=== PATIENT | male | born 1975 | race Caucasian/White ===

== ENCOUNTER 2016-09-09 22:31 | Emergency (ER) | payer MEDICAID ==
[~2016-09-09] VITALS: Ht 167.6 cm; Wt 74.8 kg
[2016-09-09] MEDS ORDERED: BUPR8TAB4 SL (22:59)
--- NOTE | 2016-09-10 01:05 | NUR ---
Patient discharged to home in stable conditon. Written and verbal after care instructions given. Patient verbalizes understanding of instructions.
== END 2016-09-10 01:06 | disposition home or self-care (01) ==
LOC: ER 22:31
DX: F11.23 Opioid dependence with withdrawal (principal); F17.200 Nicotine dependence, unspecified, uncomplicated
CPT/HCPCS: 99283; A4663

== ENCOUNTER 2018-05-26 09:05 | Emergency (ER) | payer MEDICAID ==
[~2018-05-26] VITALS: Ht 167.6 cm; Wt 85.7 kg
[~2018-05-26 09:05] MED LIST: BUPR8TAB4 SL
[2018-05-26] MEDS ORDERED: MAG HYDROX/AL HYDROX/SIMETH 30 ML LIQUID UDC PO ONE (09:30)
[2018-05-26] MEDS ORDERED: IV NORMAL SALINE 1000 ML BAG IV ONE (09:30)
[2018-05-26] MEDS ORDERED: ONDANSETRON 4 MG/2 ML VIAL IV ONE (09:30)
[2018-05-26] MEDS ORDERED: LIDOCAINE VISCUS 2% 15 ML UDC MM ONE (09:30)
[2018-05-26] MEDS ORDERED: FAMOTIDINE. 20 MG/2 ML VIAL IV ONE ×2 (09:30→09:32)
[2018-05-26] MEDS ORDERED: ONDANSETRON 4 MG/2 ML VIAL ONE (09:32)
[2018-05-26] MEDS ORDERED: MAG HYDROX/AL HYDROX/SIMETH 30 ML LIQUID UDC ONE (09:33)
[2018-05-26] MEDS ORDERED: LIDOCAINE VISCUS 2% 15 ML UDC ONE (09:33)
--- NOTE | 2018-05-26 09:45 | NUR ---
PT IS IN ROOM #1B. DR LUEVANO EVALUATED THE PT.
--- NOTE | 2018-05-26 10:01 | NUR ---
PATIENT STATE HE DOES NOT WANT ANOTHER NEEDLE FOR BLOOD DRAW AND WILL ONLY ALLOW A DRAW FROM THE IV SITE. I ATTEMPTED TO DRAW BLOOD FROM HE IV BUT THE FLOW WAS INADEQUATE FOR BLOOD TESTS. PATIENT STILL REFUSED A NEEDLE FOR BLOOD DRAW AND STATED HE WILL SEE HIS PMD TOMMORROW FOR BLOOD TEST AND ABSOLUTELY DOES NOT WANT IT NOW. DR BASSEM LITTLEJOHNFIED.
--- NOTE | 2018-05-26 10:14 | NUR ---
IV removed. Catheter intact and site benign. Pressure and 4x4 gauze applied to site. No bleeding noted.
--- NOTE | 2018-05-26 10:14 | NUR ---
Patient does not wish to proceed with medical care recommended by . Patient given information related to possible complications, up to and including , which could occur as a result of leaving the hospital at this time. Patient verbalizes understanding of risks involved due to leaving against medical advice. Patient has signed AMA form.
== END 2018-05-26 10:16 | disposition left against medical advice (07) ==
LOC: ER 09:05
DX: R10.13 Epigastric pain (principal); F17.200 Nicotine dependence, unspecified, uncomplicated; Z79.899 Other long term (current) drug therapy
CPT/HCPCS: 74022; 76705; 93005; 96374; 96375; 99284; J2405; J3490; A4663; J7030

== ENCOUNTER 2018-09-04 16:39 | Emergency (ER) | payer MEDICAID ==
[~2018-09-04] VITALS: Ht 167.6 cm; Wt 89.8 kg
--- NOTE | 2018-09-04 17:19 | NUR ---
Patient discharged to home in stable conditon. Written and verbal after care instructions given to patient. Patient verbalizes understanding and compliance of instructions. Podiatry referral provided.
== END 2018-09-04 17:22 | disposition home or self-care (01) ==
LOC: ER 16:40
DX: L60.0 Ingrowing nail (principal); F17.200 Nicotine dependence, unspecified, uncomplicated; Z79.899 Other long term (current) drug therapy
CPT/HCPCS: A4663